=== PATIENT | male | born 1975 | race Caucasian/White ===

== ENCOUNTER 2017-01-16 08:11 | Emergency (ER) | payer BC ==
[~2017-01-16] VITALS: Ht 175.3 cm; Wt 72.6 kg
[2017-01-16 10:16] LABS: CHLORIDE SERUM 100 mmol/L (98-107); POTASSIUM SERUM 4.5 mmol/L (3.5-5.1); SODIUM SERUM 135 mmol/L (136-145)
[2017-01-16 10:17] LABS: CARBON DIOXIDE 24.8 mmol/L (21-32); GLUCOSE SERUM 411 mg/dL (74-106)
[2017-01-16 10:18] LABS: CALCIUM 8.3 mg/dL (8.5-10.1); GFR1 > 60 mL/min
[2017-01-16 11:37] VITALS: BP 140/91
== END 2017-01-16 11:37 | disposition home or self-care (01) ==
LOC: ED 08:11
PROVIDERS: Emergency Medicine
DX: E11.65 Type 2 diabetes mellitus with hyperglycemia (principal); Z79.84 Long term (current) use of oral hypoglycemic drugs
CPT/HCPCS: 82962; J1815; J7030